=== PATIENT | male | born 1940 | race Caucasian/White ===

== ENCOUNTER 2017-08-18 10:23 | Inpatient (IN) | payer MEDICARE ==
[~2017-08-18] VITALS: Ht 180.3 cm; Wt 88.9 kg
[~2017-08-18 10:23] MED LIST: ACET-1600 PO; ALBU18HF INH; AMIO200T42 PO; AMIO400T4 PO; AMLO2.5T PO; ASPI325T17 PO; CARV12.52 PO; CILO100T PO; CILO100T17 PO; CYCL-259 PO; DOCU-131 PO; FERR325T18 PO; FOLI0.8T2 PO; FOLI0.8T3 PO; KRIL1CAP4 PO; KRIL1CAP9 PO; LANT1000 PO; LEVO50TA5 PO; LIDO1KIT9 TP; NITR0.3T SL; OXYC1TAB7 PO; PANT40TA3 PO; ROSU40TA PO; TAMS0.4C2 PO; UBID200C7 PO; VITA400C43 PO; epogen SC; hectorol PO; venofer SC
[2017-08-18 11:20] LABS: ABG COLLECTION SITE RIGHT RADIAL; COLLATERAL CIRCULATION TESTING NORMAL
[2017-08-18 11:37] LABS: IS PT STATUS REG ER OR PRE ER? YES
[2017-08-18] MEDS ORDERED: LANS15CA5 PO (11:43)
[2017-08-18] MEDS ORDERED: VIT1TABL59 PO (11:43)
[2017-08-18] MEDS ORDERED: CHOL2000 PO (11:43)
[2017-08-18] MEDS ORDERED: IPRA3AMP INH (11:50)
[2017-08-18] MEDS ORDERED: FUROSEMIDE 40 MG/4 ML IV ONE (12:00)
[2017-08-18] MEDS ORDERED: BISACODYL 10 MG SUPP PR PRN (14:00)
[2017-08-18] MEDS ORDERED: POLYETHYLENE GLYCOL 17 GM PACKET PO PRN (14:00)
[2017-08-18] MEDS ORDERED: DOCUSATE 100 MG CAPSULE PO PRN (14:00)
[2017-08-18] MEDS ORDERED: ACETAMINOPHEN 325 MG TABLET PO PRN (14:00)
[2017-08-18 14:06] LABS: ASPARTATE AMINO TRANSFERASE 24 U/L (15-37); BLOOD UREA NITROGEN 31 mg/dL (7-18)
[2017-08-18 14:20] LABS: HEMOGLOBIN 10.2 g/dL (13.7-18.0); WHITE BLOOD COUNT 5.9 x10^3/uL (3.4-10)
[2017-08-18 15:34] LABS: ANISOCYTOSIS 3+; MICROCYTOSIS 1+; POLYCHROMASIA 1+
[2017-08-18 15:35] LABS: OVALOCYTES 1+; POIKILOCYTOSIS 2+
[2017-08-18 16:49] LABS: IS PT STATUS REG ER OR PRE ER? NO
[2017-08-18] MEDS: LANTHANUM CARBONATE 500 MG HOMEMEDPO SCH (17:34)
[2017-08-18] MEDS: CARVEDILOL 12.5 MG TABLET PO SCH (21:00)
[2017-08-18] MEDS ORDERED: UBIDECARENONE 200 MG PO SCH (21:00)
[2017-08-18] MEDS: AMIODARONE 200 MG TABLET PO SCH (21:19)
[2017-08-18] MEDS: CILOSTAZOL 100 MG TABLET PO SCH (21:19)
[2017-08-18] MEDS: ATORVASTATIN 80 MG TABLET PO SCH (21:19)
[2017-08-18] MEDS: LEVOTHYROXINE 200 MCG TABLET PO SCH (21:19)
[2017-08-18] MEDS: DOCUSATE 100 MG CAPSULE PO SCH (21:19)
[2017-08-18] MEDS: TAMSULOSIN 0.4 MG CAP.ER.24H PO SCH (21:19)
[2017-08-18 22:30] LABS: IS PT STATUS REG ER OR PRE ER? NO
[2017-08-19] MEDS ORDERED: SODIUM CHLORIDE 0.9% 250 ML IV ONE (03:30)
[2017-08-19] MEDS: SODIUM CHLORIDE 0.9% 250 ML IV SCH ×2 (03:30→04:29)
[2017-08-19 04:47] LABS: BLOOD UREA NITROGEN 27 mg/dL (7-18)
[2017-08-19 04:58] LABS: ASPARTATE AMINO TRANSFERASE 18 U/L (15-37)
[2017-08-19 04:59] LABS: HEMATOCRIT 29.4 % (39.2-51.8); HEMOGLOBIN 9.5 g/dL (13.7-18.0); WHITE BLOOD COUNT 4.8 x10^3/uL (3.4-10)
[2017-08-19] MEDS: LANTHANUM CARBONATE 500 MG HOMEMEDPO SCH ×3 (08:00→17:00)
[2017-08-19] MEDS: PANTOPROZOLE 40MG TABLET PO SCH (09:38)
[2017-08-19] MEDS: CARVEDILOL 12.5 MG TABLET PO SCH ×2 (09:38→20:43)
[2017-08-19] MEDS: MULTIVITS,STRESS FORMULA 1 TABLET PO SCH (09:38)
[2017-08-19] MEDS: CILOSTAZOL 100 MG TABLET PO SCH ×2 (09:38→20:44)
[2017-08-19] MEDS: DOCUSATE 100 MG CAPSULE PO SCH ×2 (09:38→20:44)
[2017-08-19] MEDS: CHOLECALCIFEROL 1,000 UNIT TABLET PO SCH (09:39)
[2017-08-19 09:50] LABS: HEP B SURF. AB < 3.1 mIU/mL (0.0-10.0)
[2017-08-19] MEDS: UBIDECARENONE 200 MG PO SCH (20:42)
[2017-08-19] MEDS: LEVOTHYROXINE 200 MCG TABLET PO SCH (20:43)
[2017-08-19] MEDS: AMIODARONE 200 MG TABLET PO SCH (20:43)
[2017-08-19] MEDS: TAMSULOSIN 0.4 MG CAP.ER.24H PO SCH (20:43)
[2017-08-19] MEDS: ATORVASTATIN 80 MG TABLET PO SCH (20:44)
[2017-08-20 05:16] LABS: HEMATOCRIT 29.4 % (39.2-51.8); HEMOGLOBIN 9.5 g/dL (13.7-18.0); WHITE BLOOD COUNT 5.4 x10^3/uL (3.4-10)
[2017-08-20 05:27] LABS: BLOOD UREA NITROGEN 36 mg/dL (7-18)
[2017-08-20] MEDS: LANTHANUM CARBONATE 500 MG HOMEMEDPO SCH ×3 (08:00→17:00)
[2017-08-20] MEDS: CARVEDILOL 12.5 MG TABLET PO SCH ×2 (09:25→20:57)
[2017-08-20] MEDS: DOCUSATE 100 MG CAPSULE PO SCH ×2 (09:25→20:57)
[2017-08-20] MEDS: CILOSTAZOL 100 MG TABLET PO SCH ×2 (09:25→20:57)
[2017-08-20] MEDS: MULTIVITS,STRESS FORMULA 1 TABLET PO SCH (09:25)
[2017-08-20] MEDS: CHOLECALCIFEROL 1,000 UNIT TABLET PO SCH (09:25)
[2017-08-20] MEDS: PANTOPROZOLE 40MG TABLET PO SCH (09:25)
[2017-08-20] MEDS ORDERED: AMIODARONE 900 MG in DEXTROSE 5% 482 ML IV PRN (10:30)
[2017-08-20] MEDS ORDERED: FILTER 0.22 MICRON IV PRN (16:00)
[2017-08-20] MEDS: ATORVASTATIN 80 MG TABLET PO SCH (20:57)
[2017-08-20] MEDS: TAMSULOSIN 0.4 MG CAP.ER.24H PO SCH (20:57)
[2017-08-20] MEDS: LEVOTHYROXINE 200 MCG TABLET PO SCH (20:58)
[2017-08-20] MEDS: UBIDECARENONE 200 MG PO SCH (20:58)
[2017-08-21] MEDS: LANTHANUM CARBONATE 500 MG HOMEMEDPO SCH (08:00)
[2017-08-21] MEDS: CARVEDILOL 12.5 MG TABLET PO SCH ×2 (08:24→20:44)
[2017-08-21] MEDS: CHOLECALCIFEROL 1,000 UNIT TABLET PO SCH (08:24)
[2017-08-21] MEDS: CILOSTAZOL 100 MG TABLET PO SCH ×2 (08:24→20:43)
[2017-08-21] MEDS: PANTOPROZOLE 40MG TABLET PO SCH (08:24)
[2017-08-21] MEDS: MULTIVITS,STRESS FORMULA 1 TABLET PO SCH (08:24)
[2017-08-21] MEDS: DOCUSATE 100 MG CAPSULE PO SCH ×2 (09:35→20:44)
[2017-08-21] MEDS: CALCIUM ACETATE 667 MG CAPSULE PO SCH ×3 (11:19→20:43)
[2017-08-21] MEDS: AMIODARONE 200 MG TABLET PO SCH (12:43)
[2017-08-21] MEDS ORDERED: ONDANSETRON 2MG/ML, 2ML IVPush PRN ×2 (18:30→19:00)
[2017-08-21] MEDS ORDERED: BISACODYL 10 MG SUPP PR PRN (19:00)
[2017-08-21] MEDS ORDERED: POLYETHYLENE GLYCOL 17 GM PACKET PO PRN (19:00)
[2017-08-21] MEDS ORDERED: DOCUSATE 100 MG CAPSULE PO PRN (19:00)
[2017-08-21] MEDS ORDERED: ACETAMINOPHEN 325 MG TABLET PO PRN (19:00)
[2017-08-21] MEDS: LEVOTHYROXINE 200 MCG TABLET PO SCH (20:43)
[2017-08-21] MEDS: ATORVASTATIN 80 MG TABLET PO SCH (20:43)
[2017-08-21] MEDS: TAMSULOSIN 0.4 MG CAP.ER.24H PO SCH (20:43)
[2017-08-21] MEDS: UBIDECARENONE 200 MG PO SCH (20:44)
[2017-08-22 04:49] LABS: HEMATOCRIT 28.6 % (39.2-51.8); HEMOGLOBIN 9.4 g/dL (13.7-18.0); WHITE BLOOD COUNT 4.9 x10^3/uL (3.4-10)
[2017-08-22 04:53] LABS: BLOOD UREA NITROGEN 36 mg/dL (7-18)
[2017-08-22] MEDS: CALCIUM ACETATE 667 MG CAPSULE PO SCH ×3 (08:43→21:19)
[2017-08-22] MEDS: AMIODARONE 200 MG TABLET PO SCH (08:43)
[2017-08-22] MEDS: PANTOPROZOLE 40MG TABLET PO SCH (08:44)
[2017-08-22] MEDS: CILOSTAZOL 100 MG TABLET PO SCH ×2 (08:44→21:18)
[2017-08-22] MEDS: MULTIVITS,STRESS FORMULA 1 TABLET PO SCH (08:44)
[2017-08-22] MEDS: CHOLECALCIFEROL 1,000 UNIT TABLET PO SCH (08:47)
[2017-08-22] MEDS: MIDODRINE 2.5 MG TABLET PO SCH ×3 (11:04→21:19)
[2017-08-22] MEDS: DOCUSATE 100 MG CAPSULE PO SCH ×2 (11:04→21:18)
[2017-08-22] MEDS: ATORVASTATIN 80 MG TABLET PO SCH (21:18)
[2017-08-22] MEDS: LEVOTHYROXINE 200 MCG TABLET PO SCH (21:19)
[2017-08-22] MEDS: TAMSULOSIN 0.4 MG CAP.ER.24H PO SCH (22:04)
[2017-08-23] MEDS ORDERED: DIGOXIN 0.25 MG/ML, 2ML IVPush ONE (09:30)
[2017-08-23] MEDS: CALCIUM ACETATE 667 MG CAPSULE PO SCH ×3 (10:14→21:53)
[2017-08-23] MEDS: CHOLECALCIFEROL 1,000 UNIT TABLET PO SCH (10:14)
[2017-08-23] MEDS: PANTOPROZOLE 40MG TABLET PO SCH (10:14)
[2017-08-23] MEDS: DOCUSATE 100 MG CAPSULE PO SCH ×2 (10:14→21:53)
[2017-08-23] MEDS: MULTIVITS,STRESS FORMULA 1 TABLET PO SCH (10:14)
[2017-08-23] MEDS: AMIODARONE 200 MG TABLET PO SCH (10:15)
[2017-08-23] MEDS: CILOSTAZOL 100 MG TABLET PO SCH ×2 (10:15→21:52)
[2017-08-23] MEDS: MIDODRINE 2.5 MG TABLET PO SCH ×3 (10:15→21:54)
[2017-08-23] MEDS: ATORVASTATIN 80 MG TABLET PO SCH (21:53)
[2017-08-23] MEDS: TAMSULOSIN 0.4 MG CAP.ER.24H PO SCH (21:53)
[2017-08-23] MEDS: LEVOTHYROXINE 200 MCG TABLET PO SCH (21:54)
[2017-08-24 04:36] LABS: HEMATOCRIT 28.4 % (39.2-51.8); HEMOGLOBIN 9.3 g/dL (13.7-18.0)
[2017-08-24 04:46] LABS: BLOOD UREA NITROGEN 23 mg/dL (7-18)
[2017-08-24 04:54] LABS: ASPARTATE AMINO TRANSFERASE 31 U/L (15-37); FERRITIN 1064.9 ng/mL (26-388); TOTAL IRON BINDING CAPACITY 200 mcg/dL (250-450)
[2017-08-24] MEDS: DOCUSATE 100 MG CAPSULE PO SCH ×2 (09:00→20:35)
[2017-08-24] MEDS: CILOSTAZOL 100 MG TABLET PO SCH ×2 (09:14→20:34)
[2017-08-24] MEDS: AMIODARONE 200 MG TABLET PO SCH (09:14)
[2017-08-24] MEDS: CALCIUM ACETATE 667 MG CAPSULE PO SCH ×3 (09:14→20:34)
[2017-08-24] MEDS: PANTOPROZOLE 40MG TABLET PO SCH (09:15)
[2017-08-24] MEDS: MULTIVITS,STRESS FORMULA 1 TABLET PO SCH (09:15)
[2017-08-24] MEDS: CHOLECALCIFEROL 1,000 UNIT TABLET PO SCH (09:15)
[2017-08-24] MEDS: MIDODRINE 2.5 MG TABLET PO SCH ×3 (09:15→20:33)
[2017-08-24] MEDS ORDERED: DIGOXIN 0.125 MG TABLET PO SCH (18:00)
[2017-08-24 18:53] VITALS: BP 118/71
[2017-08-24] MEDS: TAMSULOSIN 0.4 MG CAP.ER.24H PO SCH (20:34)
[2017-08-24] MEDS: ATORVASTATIN 80 MG TABLET PO SCH (20:34)
[2017-08-24] MEDS: LEVOTHYROXINE 200 MCG TABLET PO SCH (20:35)
[2017-08-25 02:13] VITALS: BP 113/80
[2017-08-25 05:16] LABS: HEMATOCRIT 27.2 % (39.2-51.8)
[2017-08-25 05:46] LABS: BLOOD UREA NITROGEN 33 mg/dL (7-18)
[2017-08-25 05:49] LABS: ASPARTATE AMINO TRANSFERASE 32 U/L (15-37)
[2017-08-25 06:52] VITALS: BP 130/69
[2017-08-25 07:43] VITALS: BP 102/71
[2017-08-25] MEDS: PANTOPROZOLE 40MG TABLET PO SCH (07:49)
[2017-08-25] MEDS: MIDODRINE 2.5 MG TABLET PO SCH ×3 (07:49→21:47)
[2017-08-25] MEDS: AMIODARONE 200 MG TABLET PO SCH (07:49)
[2017-08-25] MEDS: CILOSTAZOL 100 MG TABLET PO SCH ×2 (07:49→21:47)
[2017-08-25] MEDS: CHOLECALCIFEROL 1,000 UNIT TABLET PO SCH (07:49)
[2017-08-25] MEDS: MULTIVITS,STRESS FORMULA 1 TABLET PO SCH (07:49)
[2017-08-25] MEDS: CALCIUM ACETATE 667 MG CAPSULE PO SCH ×3 (07:49→21:48)
[2017-08-25] MEDS: DOCUSATE 100 MG CAPSULE PO SCH (07:50)
[2017-08-25 14:20] VITALS: BP 119/76
[2017-08-25] MEDS: DIGOXIN 0.125 MG TABLET PO SCH (17:38)
[2017-08-25 20:20] VITALS: BP 134/73
[2017-08-25] MEDS: LEVOTHYROXINE 200 MCG TABLET PO SCH (21:47)
[2017-08-25] MEDS: TAMSULOSIN 0.4 MG CAP.ER.24H PO SCH (21:48)
[2017-08-25] MEDS: ATORVASTATIN 80 MG TABLET PO SCH (21:48)
[2017-08-25] MEDS: SPIRONOLACTONE 25 MG TABLET PO SCH (21:48)
[2017-08-26 01:59] VITALS: BP 107/63
[2017-08-26 05:46] LABS: HEMATOCRIT 27.7 % (39.2-51.8); HEMOGLOBIN 9.1 g/dL (13.7-18.0); WHITE BLOOD COUNT 5.1 x10^3/uL (3.4-10)
[2017-08-26 06:07] LABS: DIFF TOTAL CELLS COUNTED 100 CELL DIFF
[2017-08-26 06:09] LABS: VERIFY COUNTS? YES
[2017-08-26 06:11] LABS: ANISOCYTOSIS 1+; POLYCHROMASIA 1+
[2017-08-26 06:24] LABS: ASPARTATE AMINO TRANSFERASE 33 U/L (15-37); BLOOD UREA NITROGEN 30 mg/dL (7-18)
[2017-08-26 07:11] VITALS: BP 123/62
[2017-08-26] MEDS: CHOLECALCIFEROL 1,000 UNIT TABLET PO SCH (08:19)
[2017-08-26] MEDS: CALCIUM ACETATE 667 MG CAPSULE PO SCH (08:20)
[2017-08-26] MEDS: PANTOPROZOLE 40MG TABLET PO SCH (08:20)
[2017-08-26] MEDS: CILOSTAZOL 100 MG TABLET PO SCH ×2 (08:20→19:40)
[2017-08-26] MEDS: MULTIVITS,STRESS FORMULA 1 TABLET PO SCH (08:20)
[2017-08-26] MEDS: AMIODARONE 200 MG TABLET PO SCH (08:20)
[2017-08-26] MEDS: SPIRONOLACTONE 25 MG TABLET PO SCH (08:20)
[2017-08-26] MEDS: MIDODRINE 2.5 MG TABLET PO SCH ×2 (08:20→19:40)
[2017-08-26 14:07] VITALS: BP 119/64
[2017-08-26] MEDS: ATORVASTATIN 80 MG TABLET PO SCH (19:39)
[2017-08-26] MEDS: LEVOTHYROXINE 200 MCG TABLET PO SCH (19:39)
[2017-08-26] MEDS: TAMSULOSIN 0.4 MG CAP.ER.24H PO SCH (19:39)
[2017-08-26 20:06] VITALS: BP 120/64
[2017-08-27 01:30] VITALS: BP 103/55
[2017-08-27 05:58] LABS: HEMATOCRIT 25.7 % (39.2-51.8); HEMOGLOBIN 8.5 g/dL (13.7-18.0); WHITE BLOOD COUNT 4.9 x10^3/uL (3.4-10)
[2017-08-27 05:59] LABS: BLOOD UREA NITROGEN 28 mg/dL (7-18)
[2017-08-27 06:33] VITALS: BP 112/66
[2017-08-27] MEDS: CILOSTAZOL 100 MG TABLET PO SCH (08:03)
[2017-08-27] MEDS: MULTIVITS,STRESS FORMULA 1 TABLET PO SCH (08:03)
[2017-08-27] MEDS: CHOLECALCIFEROL 1,000 UNIT TABLET PO SCH (08:04)
[2017-08-27] MEDS: PANTOPROZOLE 40MG TABLET PO SCH (08:04)
[2017-08-27] MEDS: SPIRONOLACTONE 25 MG TABLET PO SCH (08:05)
[2017-08-27] MEDS: MIDODRINE 2.5 MG TABLET PO SCH (08:05)
[2017-08-27] MEDS: AMIODARONE 200 MG TABLET PO SCH (08:05)
[2017-08-27] MEDS ORDERED: DIGO125T PO (11:41)
[2017-08-27] MEDS ORDERED: SPIR25TA PO (11:41)
[2017-08-27 15:21] VITALS: BP 89/60
[2017-08-27] MEDS ORDERED: ASPI-621 PO (16:09)
[2017-08-27] MEDS ORDERED: MIDO2.5T PO (18:10)
[2017-08-27] MEDS: DIGOXIN 0.125 MG TABLET PO SCH (18:14)
[2017-08-27 18:50] VITALS: BP 113/68
== END 2017-08-27 20:21 | disposition home or self-care (01) | DRG 291 ==
LOC: ED 10:46 → EDIP 11:35 → CCU 13:53 → CSU 08-20 22:14 → CCU 08-21 09:51 → 5SO 08-24 13:54
PROVIDERS: ADMIT Hospitalist; ATTEND Hospitalist
PROC: 5A09357 Assistance with Respiratory Ventilation, Less than 24 Consecutive Hours, Continuous Positive Airway Pressure (ICD-10-PCS; 2017-08-18)
PROC: 5A1D60Z (ICD-10-PCS; principal; 2017-08-25)
DX: I13.2 Hypertensive heart and chronic kidney disease with heart failure and with stage 5 chronic kidney disease, or end stage renal disease (principal); J96.21 Acute and chronic respiratory failure with hypoxia; I49.01 Ventricular fibrillation; E43 Unspecified severe protein-calorie malnutrition; Z99.11 Dependence on respirator [ventilator] status; N18.6 End stage renal disease; I47.2 Ventricular tachycardia; I27.2 Other secondary pulmonary hypertension; I50.21 Acute systolic (congestive) heart failure; D61.818 Other pancytopenia; D63.1 Anemia in chronic kidney disease; E03.9 Hypothyroidism, unspecified; E78.00 Pure hypercholesterolemia, unspecified; F17.200 Nicotine dependence, unspecified, uncomplicated; I25.10 Atherosclerotic heart disease of native coronary artery without angina pectoris; I34.0 Nonrheumatic mitral (valve) insufficiency; I48.0 Paroxysmal atrial fibrillation; I49.3 Ventricular premature depolarization; J32.0 Chronic maxillary sinusitis; J42 Unspecified chronic bronchitis; K21.9 Gastro-esophageal reflux disease without esophagitis; N40.0 Benign prostatic hyperplasia without lower urinary tract symptoms; Z51.5 Encounter for palliative care; K44.9 Diaphragmatic hernia without obstruction or gangrene; G89.29 Other chronic pain; Z86.73 Personal history of transient ischemic attack (TIA), and cerebral infarction without residual deficits; Z87.81 Personal history of (healed) traumatic fracture; Z86.74 Personal history of sudden cardiac arrest; Z86.79 Personal history of other diseases of the circulatory system; Z87.19 Personal history of other diseases of the digestive system; Z95.1 Presence of aortocoronary bypass graft; Z95.810 Presence of automatic (implantable) cardiac defibrillator; Z99.2 Dependence on renal dialysis; Z88.0 Allergy status to penicillin; Z88.1 Allergy status to other antibiotic agents; Z91.040 Latex allergy status; S31.000A Unspecified open wound of lower back and pelvis without penetration into retroperitoneum, initial encounter; X58.XXXA Exposure to other specified factors, initial encounter; Y93.89 Activity, other specified; Y92.89 Other specified places as the place of occurrence of the external cause
CPT/HCPCS: 36415; 70450; 71010; 80048; 80053; 80069; 80162; 82306; 82533; 82728; 82803; 83540; 83550; 83735; 83970; 84100; 84443; 84484; 84550; 85025; 85520; 86704; 86706; 87081; 87340; 93005; 93306; 94660; 99291; J0282; J1160; J7050; J7060